=== PATIENT | male | born 1930 | race Caucasian/White ===

== ENCOUNTER 2016-12-16 09:18 | Day surgery (SDC) | payer MEDICARE ==
--- NOTE | 2016-12-16 09:57 | Short Stay Summary ---
Short Stay Documentation Date of service: 12/16/16 Narrative H&P: 86 year old presents for EGD/colonoscopy for evaluation of abdominal pain. History includes GERD and colon polyps. Last colonoscopy was 2013. - History Principal diagnosis: abdominal pain H&P: obtained from office - Allergies and Medications Current Medications: Allergies No Known Allergies Allergy (Unverified 12/16/16 09:18) Home Medications Medication Instructions Recorded Confirmed Last Taken Type Aspir-Low 1 tab PO DAILY 12/13/16 12/13/16 Unknown History AtorvaSTATin 1 tab PO DAILY 12/13/16 12/13/16 Unknown History Coreg 1 tab PO BID 12/13/16 12/13/16 Unknown History Latanoprost 0.005% 1 drop OU HS 12/13/16 12/13/16 Unknown History Lisinopril 1 tab PO QAM 12/13/16 12/13/16 Unknown History Melatonin 1 cap PO HS 12/13/16 12/13/16 Unknown History Omeprazole 1 cap PO QDAC 12/13/16 12/13/16 Unknown History Timolol 0.5% 1 tab PO DAILY 12/13/16 12/13/16 Unknown History Vitamin D3 1 tab PO DAILY 12/13/16 12/13/16 Unknown History - Hospital course Hospital course: Uneventful EGD/colonoscopy. - Disposition Condition at discharge: Good Disposition: DC-01 TO HOME OR SELFCARE - Discharge Diagnoses (1) Abdominal pain Status: Acute Qualifiers: Abdominal location: A (2) Gastritis Status: Acute Qualifiers: Gastritis type: G Chronicity: C Gastritis bleeding: G (3) Duodenitis Status: Acute (4) GERD (gastroesophageal reflux disease) Status: Acute Qualifiers: Esophagitis presence: E (5) Personal history of colonic polyps Status: Acute (6) Colon polyp Status: Acute Qualifiers: Colon polyp type: C Colon location: C Inflammatory colon polyp complication status: I (7) Diverticulosis Status: Acute Qualifiers: Diverticulosis site: D Diverticulosis bleeding: D (8) Internal hemorrhoids Status: Acute Short Stay Discharge Plan Activity: other (no driving today) Diet: other (may resume usual diet) Additional Instructions: Patient to call for pathology results.
[2016-12-16] MEDS ORDERED: NACL 0.9% 1000 ML 1,000 ML IV SCH (10:00)
[2016-12-16] MEDS ORDERED: DIPRIVAN 10 MG/ML IV ONE ×2 (10:57)
--- NOTE | 2016-12-16 11:04 | Anesthesia Consultation ---
Anesthesia Consult and Med Hx Date of service: 12/16/16 - Airway Anesthetic Teeth Evaluation: Dentures, Partials ROM Head & Neck: Adequate Mental/Hyoid Distance: Adequate Mallampati Class: Class II Intubation Access Assessment: Probably Good - Pulmonary Exam CTA: Yes - Cardiac Exam Cardiac Exam: RRR - Pre-Operative Health Status ASA Pre-Surgery Classification: ASA3 Proposed Anesthetic Plan: MAC - Pulmonary Hx Smoking: Yes (former, quit 20 yrs ago) Hx Asthma: No COPD: No Hx Sleep Apnea: No - Cardiovascular System Hx Hypertension: Yes (EF 35%) Hx Coronary Artery Disease: Yes (h/o CABG) Hx Percutaneous Transluminal Coronary Angioplasty (PTCA): No Hx Pacemaker: Yes Hx Internal Defibrillator: Yes - Central Nervous System Hx Seizures: No CVA: No - Gastrointestinal Hx Ulcer: Yes Hx Gastroesophageal Reflux Disease: Yes - Endocrine Hx Renal Disease: No Hx Liver Disease: No Hx Non-Insulin Dependent Diabetes: No Hx Thyroid Disease: No - Other Systems Hx Cancer: No Hx Obesity: No
--- NOTE | 2016-12-16 11:04 | Anesthesia Day of Surgery ---
Anesthesia Day of Surgery - Day of Surgery Patient Examined: Yes Patient is NPO: Yes
[2016-12-16] MEDS ORDERED: WATER FOR IRRIG STERILE IR ONE (11:43)
--- NOTE | 2016-12-16 11:51 | Operative Report ---
Operative Report Operative Report: Date of procedure: 12/16/2016 Preprocedure diagnosis: Abdominal pain, gastroesophageal reflux disease, personal history of colon polyps Post procedure diagnosis: Gastritis, duodenitis, colon polyp, diverticulosis, internal hemorrhoids Procedure name(s): Esophagogastroduodenoscopy and biopsy, colonoscopy and forceps polypectomy Surgeon: Lg Estes MD Anesthesia: Monitored anesthesia care EBL: Minimal Procedure: The indications, techniques, potential complications and alternatives , had been discussed in full detail prior to the date of the exam, and once again on the day of the exam. Questions were encouraged and answered, and consent was thereby obtained. The patient was placed in the left lateral decubitus position, and was medicated by anesthesia services. See the anesthesia records for details. The tip of a [employer] video panendoscope was passed without difficulty through the pharynx and into the esophagus which appeared normal throughout its entire length. The endoscope was advanced into the stomach and air was insufflated. The stomach distended well. The gastric folds were normal in thickness and contour, the pylorus was patent and there was no retained gastric content. There was patchy erythema in the prepyloric antrum. There was erythema and granularity with mucosal friability in the duodenal bulb. The post bulbar duodenum appeared normal to below the level of the ampulla. Retroflexion in the stomach disclosed no additional pathology involving the lesser curvature, fundus or cardia. Biopsies were obtained from the duodenal bulb for histology and from the prepyloric antrum for histology. There was minimal self-limited oozing from the biopsy sites. The endoscope was then withdrawn with repeat examination of the stomach, esophagogastric junction and esophagus. There were no additional findings. The procedure was very well tolerated. He was then placed in position for colonoscopy. The anal sphincter was digitally dilated. The digital exam revealed no masses. The tip of a [employer] video colonoscope was inserted through the anal sphincter and into the rectal vault. It was then advanced proximally under continuous visualization of the lumen to the cecum without difficulty. The prep was adequate. Lavage including use of a Mylicon containing solution was employed to improve mucosal visibility. A 2 mm polyp was excised from the cecum with a cold forceps. Excision was complete. Bleeding was minimal. The remainder the cecum appeared normal including appendiceal orifice and ileocecal valve. Cannulation of the valve revealed normal appearing terminal ileum. The endoscope was then slowly withdrawn with careful circumferential examination of the colonic mucosa. No pathology was seen in the ascending colon, hepatic flexure, transverse colon, descending colon. Rare diverticula were noted in the sigmoid. The rectum appeared normal from the forward view and retroflexion in the rectum revealed prominent but nonbleeding internal hemorrhoids. No other pathology was seen. The antrum was straightened and withdrawn. Both procedures were very well tolerated. He was then monitored in the recovery area the GI lab to ensure stability prior to his release. See the outpatient record for details regarding instructions to patient, medications and plans for follow-up. Final diagnosis: 1. Prepyloric gastritis 2. Bulbar duodenitis 3. Otherwise normal upper endoscopy 4. Diminutive polyp of cecum, excised 5. Minimal sigmoid diverticulosis 6. Internal hemorrhoids 7. Otherwise normal colon and normal terminal ileum Lg Estes M.D. Dictated 12/16/2016 at 11:50 AM
[2016-12-16 12:03] VITALS: BP 117/77
--- NOTE | 2016-12-16 13:50 | Post Anesthesia Evaluation ---
- Post Anesthesia Evaluation Patient Participated: Yes Airway Patent: Yes Stable Respiratory Function: Yes Nausea/Vomiting: No Temp > 96.8F: Yes Pain Manageable: Yes Adequeate Hydration: Yes Anesthesia Complications: No Block Receding Appropriately: Not Applicable Patient on Ventilator: No
== END 2016-12-16 09:19 | disposition home or self-care (01) ==
LOC: GIO 09:18
PROVIDERS: ATTEND Internal Medicine Gastroenterology
DX: K63.5 Polyp of colon (principal); K57.30 Diverticulosis of large intestine without perforation or abscess without bleeding; K21.9 Gastro-esophageal reflux disease without esophagitis; K29.50 Unspecified chronic gastritis without bleeding; K29.80 Duodenitis without bleeding; K64.8 Other hemorrhoids; I10 Essential (primary) hypertension; I25.10 Atherosclerotic heart disease of native coronary artery without angina pectoris; Z95.1 Presence of aortocoronary bypass graft; Z95.0 Presence of cardiac pacemaker; Z87.891 Personal history of nicotine dependence; Z87.19 Personal history of other diseases of the digestive system
CPT/HCPCS: 43239; 45380; 88305; 88342; J2704; J7030